=== PATIENT | female | born 1940 ===

== ENCOUNTER 2018-02-05 08:25 | Outpatient (CLI) | payer OTHER ==
[~2018-02-05] VITALS: Ht 170.2 cm; Wt 84.8 kg
== END 2018-02-05 08:45 | disposition home or self-care (01) ==
LOC: OFIC 805 08:25
DX: K21.9 Gastro-esophageal reflux disease without esophagitis (principal); R13.19 Other dysphagia

== ENCOUNTER 2018-02-26 12:30 | Outpatient (CLI) | payer OTHER ==
[~2018-02-26] VITALS: Ht 152.4 cm; Wt 84.8 kg
== END 2018-02-26 12:45 | disposition home or self-care (01) ==
LOC: OFIC 805 12:30
DX: E04.1 Nontoxic single thyroid nodule (principal); R13.19 Other dysphagia; K21.9 Gastro-esophageal reflux disease without esophagitis